=== PATIENT | male | born 1955 | race Caucasian/White ===

== ENCOUNTER 2017-06-03 06:45 | Observation (INO) | payer OTHER ==
--- NOTE | 2017-06-03 07:15 | C.PDOC ---
History Of Present Illness 61 y/o male presents to ED with complaints of dizziness "room spinning around me " with associated nausea and vomiting since this morning. Patient also reports intermittent chest pain for 2 weeks but denies current chest pain. She denies sob, cough, fever, focal extremity weakness, visual changes, sensory changes, facial droop, slurred speech. PMHx of HTN and hyperlipidemia. Time Seen by Provider: 06/03/17 07:09 Chief Complaint (Nursing): Dizziness/Lightheaded History Per: Patient History/Exam Limitations: no limitations Onset/Duration Of Symptoms: Hrs Current Symptoms Are (Timing): Still Present Past Medical History Reviewed: Historical Data, Nursing Documentation, Vital Signs Vital Signs: Last Vital Signs Temp 97.6 F 06/05/17 04:00 Pulse 98 H 06/05/17 04:00 Resp 20 06/05/17 04:00 BP 112/64 06/05/17 04:00 Pulse Ox 100 06/05/17 07:43 - Medical History PMH: HTN, Hypercholesterolemia Surgical History: No Surg Hx Family History: States: No Known Family Hx - Social History Hx Alcohol Use: No Hx Substance Use: No - Immunization History Hx Tetanus Toxoid Vaccination: No Hx Influenza Vaccination: No Hx Pneumococcal Vaccination: No Review Of Systems Except As Marked, All Systems Reviewed And Found Negative. Cardiovascular: Negative for: Chest Pain Respiratory: Negative for: Shortness of Breath Gastrointestinal: Positive for: Nausea, Vomiting. Negative for: Abdominal Pain Skin: Negative for: Rash Neurological: Positive for: Dizziness. Negative for: Weakness, Numbness, Altered Mental Status, Headache Physical Exam - Physical Exam Appears: Well, Non-toxic, No Acute Distress Skin: Warm, Dry, No Rash Head: Atraumatic, Normacephalic Eye(s): bilateral: Normal Inspection (No nystagmus) Oral Mucosa: Moist Neck: Supple Cardiovascular: Rhythm Regular Respiratory: Normal Breath Sounds, No Rales, No Rhonchi, No Wheezing Gastrointestinal/Abdominal: Normal Exam, Bowel Sounds, Soft, No Tenderness Extremity: Bilateral: Normal ROM Neurological/Psych: Oriented x3, Normal Speech, Normal Cognition, Normal Cranial Nerves, No Cerebellar Signs, Normal Motor, Normal Sensation, Normal Reflexes, No Dysarthria Gait: Steady ED Course And Treatment - Laboratory Results Result Diagrams: 06/05/17 06:22 06/05/17 06:22 ECG: Interpreted By Me, Viewed By Me (NSR 72 bpm, normal axis, no acute ST/T wave changes) ECG Rhythm: Sinus Rhythm ECG Interpretation: Normal Rate From EC (bpm) O2 Sat by Pulse Oximetry: 100 (RA) Pulse Ox Interpretation: Normal - CT Scan/US CT scan Head w/o Contrast Other Rad Studies (CT/US): Read By Radiologist, Radiology Report Reviewed CT/US Interpretation: IMPRESSION: No acute intracranial pathology. Progress Note: Blood work, EKG, CT scan head ordered and reviewed. Patient given PO Meclizine, PO ASA. Intermittent CP in patient with cardiac risk factors, will keep for chest pain workup. - Physician Consult Information Physician Contacted: Di Finch Outcome Of Conversation: Discussed patient with Dr. Finch, agrees with admission for intermittent chest pain, vertigo. Disposition - Disposition Disposition: HOSPITALIZED Disposition Time: 10:43 Condition: STABLE - Clinical Impression Clinical Impression: Dizziness, Vertigo, Intermittent chest pain Decision To Admit - Pt Status Changed To: Hospital Disposition Of: Observation - . Bed Request Type: Telemetry Admitting Physician: Di Finch Patient Diagnosis: Dizziness, Vertigo, Intermittent chest pain
--- NOTE | 2017-06-03 07:40 | RAD ---
Chest x-ray single frontal view History: Chest pain. Comparison: None available. Findings: Persistent confluent opacification at the left lung base with small left pleural effusion. Venous congestion. Right hilar prominence. Heart size within normal limits. Impression: Persistent confluent opacification at the left lung base with small left pleural effusion. Venous congestion. Right hilar prominence.
[2017-06-03 07:43] LABS: BASO % 0.4 % (0.0-2.0); EOS # 0.1 K/uL (0.0-0.7); EOS % 1.4 % (0.0-4.0); HEMOGLOBIN 9.8 g/dL (12.0-18.0); LYMPH # 0.9 K/uL (1.0-4.3); LYMPH % 10.5 % (20.0-40.0); MEAN CELL VOLUME 78.9 fL (80.0-94.0); MEAN CORPUSCULAR HEMOGLOBIN 27.4 pg (27.0-31.0); MEAN CORPUSCULAR HGB CONC 34.8 g/dL (33.0-37.0); MEAN PLATELET VOLUME 7.2 fL (7.2-11.7); MONO # 0.6 K/uL (0.0-0.8); NEUT # 6.8 K/uL (1.8-7.0); NEUT % 80.7 % (50.0-75.0); RBC 3.55 Mil/uL (4.40-5.90); RED CELL DISTRIBUTION WIDTH 14.8 % (11.5-14.5); WHITE BLOOD COUNT 8.4 K/uL (4.8-10.8)
[2017-06-03] MEDS ORDERED: Sodium Chloride 0.9% 1,000 ML IV ONE (07:59)
[2017-06-03 08:05] LABS: INR 1.2; PROTHROMBIN TIME 13.4 SECONDS (9.7-12.2)
[2017-06-03 08:08] LABS: CK-MB 2.93 ng/mL (0.0-3.38)
[2017-06-03] MEDS ORDERED: Sodium Chloride 0.9% 1,000 ML ONE (08:12)
[2017-06-03 08:33] LABS: ALB/GLOB RATIO 0.9 (1.0-2.1); ALBUMIN 3.3 g/dL (3.5-5.0); ALT/SGPT 22 U/L (21-72); AST/SGOT 49 U/L (17-59); BLOOD UREA NITROGEN 15 mg/dL (9-20); CALCIUM 9.1 mg/dl (8.6-10.4); GFR AFRICAN-AMERICAN > 60; GFR NON-AFRICAN AMERICAN > 60
--- NOTE | 2017-06-03 09:06 | CT ---
PROCEDURE: CT HEAD WITHOUT CONTRAST. HISTORY: dizziness COMPARISON: None available. TECHNIQUE: Axial computed tomography images were obtained through the head/brain without intravenous contrast. Radiation dose: Total exam DLP = 817.3 mGy-cm. This CT exam was performed using one or more of the following dose reduction techniques: Automated exposure control, adjustment of the mA and/or kV according to patient size, and/or use of iterative reconstruction technique. FINDINGS: HEMORRHAGE: No intracranial hemorrhage. BRAIN: No mass effect or edema. Mild atrophy. Mild chronic periventricular white matter microvascular ischemic changes. VENTRICLES: Unremarkable. No hydrocephalus. CALVARIUM: Unremarkable. PARANASAL SINUSES: Unremarkable as visualized. No significant inflammatory changes. MASTOID AIR CELLS: Unremarkable as visualized. No inflammatory changes. OTHER FINDINGS: None. IMPRESSION: No acute intracranial pathology.
[2017-06-03 09:17] LABS: URINE BILIRUBIN NEGATIVE (NEGATIVE); URINE BLOOD NEGATIVE (NEGATIVE); URINE CLARITY Clear (Clear); URINE COLOR Straw (YELLOW); URINE GLUCOSE (UA) 3+ mg/dL (Normal); URINE LEUKOCYTE ESTERASE NEG Leu/uL (Negative); URINE PROTEIN NEGATIVE (NEGATIVE); URINE UROBILINOGEN NORMAL mg/dL (0.2-1.0)
--- NOTE | 2017-06-03 19:01 | CP.PCM.HP ---
Past Patient History - Infectious Disease Hx of Infectious Diseases: None - Past Medical History & Family History Past Medical History?: Yes - Past Social History Smoking Status: Never Smoked - CARDIAC Hx Cardiac Disorders: Yes Hx Hypercholesterolemia: Yes Hx Hypertension: Yes - PULMONARY Hx Respiratory Disorders: No - NEUROLOGICAL Hx Neurological Disorder: No - HEENT Hx HEENT Problems: No - RENAL Hx Chronic Kidney Disease: No - ENDOCRINE/METABOLIC Hx Endocrine Disorders: Yes Hx Diabetes Mellitus Type 2: Yes - HEMATOLOGICAL/ONCOLOGICAL Hx Blood Disorders: No - INTEGUMENTARY Hx Dermatological Problems: No - MUSCULOSKELETAL/RHEUMATOLOGICAL Hx Musculoskeletal Disorders: No Hx Falls: No - GASTROINTESTINAL Hx Gastrointestinal Disorders: No - GENITOURINARY/GYNECOLOGICAL Hx Genitourinary Disorders: No - PSYCHIATRIC Hx Psychophysiologic Disorder: No Hx Substance Use: No - SURGICAL HISTORY Hx Surgeries: Yes Hx Cardiac Catheterization: Yes - ANESTHESIA Hx Anesthesia: Yes Hx Anesthesia Reactions: No Meds Allergies/Adverse Reactions: Allergies Allergy/AdvReac Type Severity Reaction Status Date / Time No Known Allergies Allergy Unverified 06/03/17 06:51 Physical Exam - Constitutional Appears: Well - Head Exam Head Exam: ATRAUMATIC, NORMAL INSPECTION, NORMOCEPHALIC - Eye Exam Eye Exam: EOMI, Normal appearance, PERRL Pupil Exam: NORMAL ACCOMODATION, PERRL - ENT Exam ENT Exam: Mucous Membranes Moist, Normal Exam - Neck Exam Neck exam: Positive for: Normal Inspection - Respiratory Exam Respiratory Exam: Decreased Breath Sounds - Cardiovascular Exam Cardiovascular Exam: REGULAR RHYTHM, +S1, +S2 - GI/Abdominal Exam GI & Abdominal Exam: Diminished Bowel Sounds, Soft - Rectal Exam Rectal Exam: Deferred Results - Vital Signs Recent Vital Signs: Last Vital Signs Temp 99.0 F 06/03/17 16:15 Pulse 81 06/03/17 18:00 Resp 20 06/03/17 16:15 BP 166/75 H 06/03/17 16:15 Pulse Ox 99 06/03/17 16:15 - Labs Result Diagrams: 06/03/17 07:37 06/03/17 07:37 Labs: Laboratory Results - last 24 hr 06/03/17 06/03/17 06/03/17 07:37 07:37 07:37 WBC 8.4 RBC 3.55 L Hgb 9.8 L Hct 28.0 L MCV 78.9 L MCH 27.4 MCHC 34.8 RDW 14.8 H Plt Count 410 H MPV 7.2 Neut % (Auto) 80.7 H Lymph % (Auto) 10.5 L Sebastian % (Auto) 7.0 Eos % (Auto) 1.4 Baso % (Auto) 0.4 Neut # (Auto) 6.8 Lymph # (Auto) 0.9 L Sebastian # (Auto) 0.6 Eos # (Auto) 0.1 Baso # (Auto) 0.0 PT 13.4 H INR 1.2 APTT 31 Sodium 141 Potassium 4.4 Chloride 105 Carbon Dioxide 22 Anion Gap 19 BUN 15 Creatinine 0.8 Est GFR ( Amer) > 60 Est GFR (Non-Af Amer) > 60 POC Glucose (mg/dL) Random Glucose 287 H Calcium 9.1 Total Bilirubin 0.6 AST 49 ALT 22 Alkaline Phosphatase 318 H Total Creatine Kinase 61 CK-MB (Mass) 2.93 Troponin I < 0.0120 Total Protein 7.2 Albumin 3.3 L Globulin 3.8 Albumin/Globulin Ratio 0.9 L Urine Color Urine Clarity Urine pH Ur Specific Frederick Urine Protein Urine Glucose (UA) Urine Ketones Urine Blood Urine Nitrate Urine Bilirubin Urine Urobilinogen Ur Leukocyte Esterase Urine WBC (Auto) Urine RBC (Auto) 06/03/17 06/03/17 09:11 17:34 WBC RBC Hgb Hct MCV MCH MCHC RDW Plt Count MPV Neut % (Auto) Lymph % (Auto) Sebastian % (Auto) Eos % (Auto) Baso % (Auto) Neut # (Auto) Lymph # (Auto) Sebastian # (Auto) Eos # (Auto) Baso # (Auto) PT INR APTT Sodium Potassium Chloride Carbon Dioxide Anion Gap BUN Creatinine Est GFR ( Amer) Est GFR (Non-Af Amer) POC Glucose (mg/dL) 202 H Random Glucose Calcium Total Bilirubin AST ALT Alkaline Phosphatase Total Creatine Kinase CK-MB (Mass) Troponin I Total Protein Albumin Globulin Albumin/Globulin Ratio Urine Color Straw Urine Clarity Clear Urine pH 6.0 Ur Specific Frederick 1.011 Urine Protein Negative Urine Glucose (UA) 3+ H Urine Ketones Negative Urine Blood Negative Urine Nitrate Negative Urine Bilirubin Negative Urine Urobilinogen Normal Ur Leukocyte Esterase Neg Urine WBC (Auto) < 1 Urine RBC (Auto) < 1
[2017-06-04] MEDS: Enoxaparin 40 mg Syringe SC SCH (09:23)
[2017-06-04] MEDS: Metoprolol Succinate 25 mg XL Tab PO SCH (09:23)
--- NOTE | 2017-06-04 09:51 | CP.PCM.CON ---
History of Present Illness - History of Present Illness History of Present Illness: Consult note for Dr. Castañeda CC: Dizziness HPI: Patient is a 61 year old male with a history of HTN, DM, and hyperlipidemia is here because he had an episode of dizziness and vomiting yesterday. He said yesterday morning he went to the bathroom and while walking to the bathroom he had a sensation like the room was spining and one episode of vomiting. He said he felt better when he went back to his room. He says he has been having generalized weakness of the past two months as well as 20lb weight loss in 2 months. He also reports some intermittent chest pain as well for the past 5-6 months as well. He says he was seen by his PMD last month and told his DM was under controlled. Review of Systems - Review of Systems All systems: reviewed and no additional remarkable complaints except - Constitutional Constitutional: Weight Loss. absent: Chills, Fever - EENT Eyes: absent: Blurred Vision, Change in Vision - Cardiovascular Cardiovascular: Chest Pain. absent: Dyspnea, Lightheadedness, Palpitations - Respiratory Respiratory: absent: Cough, Dyspnea - Gastrointestinal Gastrointestinal: Nausea, Vomiting. absent: Diarrhea - Genitourinary Genitourinary: absent: Difficulty Urinating, Dysuria - Musculoskeletal Musculoskeletal: absent: Back Pain, Numbness, Tingling - Neurological Neurological: Disequilibrium, Dizziness, Vertigo, Weakness. absent: Numbness, Frequent Falls, Sensory Deficit, Syncope, Other Visual Disturbances - Endocrine Endocrine: absent: Excessive Sweating, Fatigue, Palpitations Past Patient History - Infectious Disease Hx of Infectious Diseases: None - Past Medical History & Family History Past Medical History?: Yes - Past Social History Smoking Status: Never Smoked - CARDIAC Hx Cardiac Disorders: Yes Hx Hypercholesterolemia: Yes Hx Hypertension: Yes - PULMONARY Hx Respiratory Disorders: No - NEUROLOGICAL Hx Neurological Disorder: No - HEENT Hx HEENT Problems: No - RENAL Hx Chronic Kidney Disease: No - ENDOCRINE/METABOLIC Hx Endocrine Disorders: Yes Hx Diabetes Mellitus Type 2: Yes - HEMATOLOGICAL/ONCOLOGICAL Hx Blood Disorders: No - INTEGUMENTARY Hx Dermatological Problems: No - MUSCULOSKELETAL/RHEUMATOLOGICAL Hx Musculoskeletal Disorders: No Hx Falls: No - GASTROINTESTINAL Hx Gastrointestinal Disorders: No - GENITOURINARY/GYNECOLOGICAL Hx Genitourinary Disorders: No - PSYCHIATRIC Hx Psychophysiologic Disorder: No Hx Substance Use: No - SURGICAL HISTORY Hx Surgeries: Yes Hx Cardiac Catheterization: Yes - ANESTHESIA Hx Anesthesia: Yes Hx Anesthesia Reactions: No Meds Allergies/Adverse Reactions: Allergies Allergy/AdvReac Type Severity Reaction Status Date / Time No Known Allergies Allergy Unverified 06/03/17 06:51 - Medications Medications: Current Medications Aspirin (Ecotrin) 81 mg PO DAILY [facility] Last Admin: 06/04/17 09:22 Dose: 81 mg Clopidogrel Bisulfate (Plavix) 75 mg PO DAILY [facility] Last Admin: 06/04/17 09:22 Dose: 75 mg Enoxaparin Sodium (Lovenox) 40 mg SC DAILY [facility] Last Admin: 06/04/17 09:23 Dose: 40 mg Glipizide (Glucotrol) 5 mg PO DAILY [facility] Last Admin: 06/04/17 09:22 Dose: 5 mg Lisinopril (Zestril) 20 mg PO DAILY [facility] Last Admin: 06/04/17 09:22 Dose: 20 mg Metformin HCl (Glucophage Xr) 500 mg PO DAILY [facility] Last Admin: 06/04/17 09:23 Dose: 500 mg Metoprolol Succinate (Toprol Xl) 25 mg PO DAILY [facility] Last Admin: 06/04/17 09:23 Dose: 25 mg Nitroglycerin (Nitrostat Sl Tab) 0.4 mg SL Q5M PRN Pneumococcal Polyvalent Vaccine (Pneumovax 23 Vaccine) 0.5 ml IM .ONCE ONE Stop: 06/04/17 10:01 Rosuvastatin Calcium (Crestor) 40 mg PO [facility] Physical Exam - Constitutional Appears: Non-toxic, No Acute Distress - Eye Exam Eye Exam: Normal appearance, PERRL. absent: Scleral icterus Pupil Exam: NORMAL ACCOMODATION - Respiratory Exam Respiratory Exam: Clear to Auscultation Bilateral. absent: Rhonchi, Wheezes - Cardiovascular Exam Cardiovascular Exam: REGULAR RHYTHM - GI/Abdominal Exam GI & Abdominal Exam: Normal Bowel Sounds, Soft - Extremities Exam Extremities exam: Positive for: normal inspection - Neurological Exam Neurological exam: Alert, CN II-XII Intact, Oriented x3, Reflexes Normal - Psychiatric Exam Psychiatric exam: Normal Affect, Normal Mood Results - Vital Signs Recent Vital Signs: Last Vital Signs Temp 98 F 06/04/17 04:05 Pulse 72 06/04/17 04:05 Resp 20 06/04/17 04:05 BP 171/80 H 03/29/18 04:05 Pulse Ox 100 06/04/17 04:05 - Labs Result Diagrams: 06/03/17 07:37 06/03/17 07:37 Labs: Laboratory Results - last 24 hr 06/03/17 06/03/17 06/04/17 17:34 21:45 06:08 POC Glucose (mg/dL) 202 H 279 H 181 H Assessment & Plan (1) Vertigo Assessment and Plan: Case discussed and patient seen with Dr. Castañeda. Patient has normal neuro exam. Will get a CTA of the head and neck to look for vertebral basilar insufficiency. We also recommend a tilt able test and cardiac consultation as well. Status: Acute (2) Orthostatic hypotension Assessment and Plan: This could be secondary to autonomtic dysfunction due to controlled DM. Status: Acute (3) Diabetes mellitus Assessment and Plan: Uncontrolled with Hbg a1c 9.3, management per primary team. Status: Acute (4) HTN (hypertension) Assessment and Plan: Amlodapine added. management per primary. Status: Acute (5) Hyperlipidemia Status: Acute
[2017-06-04] MEDS ORDERED: Pneumococcal 23-Valent Vaccine IM ONE (10:00)
--- NOTE | 2017-06-04 10:49 | CP.PCM.PN ---
Subjective - Date & Time of Evaluation Date of Evaluation: 06/04/17 Time of Evaluation: 10:00 - Subjective Subjective: clinically same Objective - Vital Signs/Intake and Output Vital Signs (last 24 hours): Temp Pulse Resp BP Pulse Ox 98 F 72 20 171/80 H 100 06/04/17 04:05 06/04/17 04:05 06/04/17 04:05 06/04/17 04:05 06/04/17 04:05 - Medications Medications: Current Medications Aspirin (Ecotrin) 81 mg PO DAILY [facility] Last Admin: 06/04/17 09:22 Dose: 81 mg Clopidogrel Bisulfate (Plavix) 75 mg PO DAILY [facility] Last Admin: 06/04/17 09:22 Dose: 75 mg Enoxaparin Sodium (Lovenox) 40 mg SC DAILY [facility] Last Admin: 06/04/17 09:23 Dose: 40 mg Glipizide (Glucotrol) 5 mg PO DAILY [facility] Last Admin: 06/04/17 09:22 Dose: 5 mg Insulin Human Regular (Novolin R) 0 unit SC [facility] PRN Reason: Protocol Lisinopril (Zestril) 20 mg PO DAILY [facility] Last Admin: 06/04/17 09:22 Dose: 20 mg Metformin HCl (Glucophage Xr) 500 mg PO DAILY [facility] Last Admin: 06/04/17 09:23 Dose: 500 mg Metoprolol Succinate (Toprol Xl) 25 mg PO DAILY [facility] Last Admin: 06/04/17 09:23 Dose: 25 mg Nitroglycerin (Nitrostat Sl Tab) 0.4 mg SL Q5M PRN Rosuvastatin Calcium (Crestor) 40 mg PO [facility] - Labs Labs: 06/03/17 07:37 06/03/17 07:37 PT 13.4 SECONDS (9.7-12.2) H 06/03/17 07:37 INR 1.2 06/03/17 07:37 APTT 31 SECONDS (21-34) 06/03/17 07:37 - Constitutional Appears: Well - Head Exam Head Exam: ATRAUMATIC, NORMAL INSPECTION, NORMOCEPHALIC - Eye Exam Eye Exam: EOMI, Normal appearance, PERRL Pupil Exam: NORMAL ACCOMODATION, PERRL - ENT Exam ENT Exam: Mucous Membranes Moist, Normal Exam - Neck Exam Neck Exam: Full ROM, Normal Inspection. absent: Lymphadenopathy - Respiratory Exam Respiratory Exam: Decreased Breath Sounds - Cardiovascular Exam Cardiovascular Exam: REGULAR RHYTHM, +S1, +S2 - GI/Abdominal Exam GI & Abdominal Exam: Soft, Diminished Bowel Sounds - Rectal Exam Rectal Exam: Deferred
--- NOTE | 2017-06-04 11:15 | CP.PCM.PN ---
Subjective - Date & Time of Evaluation Date of Evaluation: 06/04/17 Time of Evaluation: 09:10 - Subjective Subjective: PGY-[address] Finch Patient seen and examined at bedside. No acute events overnight. Patient state his dizziness and chest pain have resolved. He further denies fever, chills, shortness of breath, nausea or vomiting. Objective - Vital Signs/Intake and Output Vital Signs (last 24 hours): Temp Pulse Resp BP Pulse Ox 98 F 72 20 171/80 H 100 06/04/17 04:05 06/04/17 04:05 06/04/17 04:05 06/04/17 04:05 06/04/17 04:05 - Medications Medications: Current Medications Amlodipine Besylate (Norvasc) 5 mg PO DAILY [facility] Aspirin (Ecotrin) 81 mg PO DAILY [facility] Last Admin: 06/04/17 09:22 Dose: 81 mg Clopidogrel Bisulfate (Plavix) 75 mg PO DAILY [facility] Last Admin: 06/04/17 09:22 Dose: 75 mg Enoxaparin Sodium (Lovenox) 40 mg SC DAILY [facility] Last Admin: 06/04/17 09:23 Dose: 40 mg Glipizide (Glucotrol) 5 mg PO DAILY [facility] Last Admin: 06/04/17 09:22 Dose: 5 mg Insulin Human Regular (Novolin R) 0 unit SC [facility] PRN Reason: Protocol Lisinopril (Zestril) 20 mg PO DAILY [facility] Last Admin: 06/04/17 09:22 Dose: 20 mg Metformin HCl (Glucophage Xr) 500 mg PO DAILY [facility] Last Admin: 06/04/17 09:23 Dose: 500 mg Metoprolol Succinate (Toprol Xl) 25 mg PO DAILY [facility] Last Admin: 06/04/17 09:23 Dose: 25 mg Nitroglycerin (Nitrostat Sl Tab) 0.4 mg SL Q5M PRN Rosuvastatin Calcium (Crestor) 40 mg PO [facility] - Labs Labs: 06/03/17 07:37 06/03/17 07:37 PT 13.4 SECONDS (9.7-12.2) H 06/03/17 07:37 INR 1.2 06/03/17 07:37 APTT 31 SECONDS (21-34) 06/03/17 07:37 - Constitutional Appears: Non-toxic, No Acute Distress - Head Exam Head Exam: ATRAUMATIC, NORMOCEPHALIC - Eye Exam Eye Exam: Normal appearance - ENT Exam ENT Exam: Mucous Membranes Moist - Neck Exam Neck Exam: Normal Inspection - Respiratory Exam Respiratory Exam: Clear to Ausculation Bilateral, NORMAL BREATHING PATTERN. absent: Respiratory Distress - Cardiovascular Exam Cardiovascular Exam: REGULAR RHYTHM, +S1, +S2. absent: Murmur - GI/Abdominal Exam GI & Abdominal Exam: Soft, Normal Bowel Sounds. absent: Tenderness - Neurological Exam Neurological Exam: Alert, Awake, Oriented x3 - Psychiatric Exam Psychiatric exam: Normal Affect, Normal Mood - Skin Skin Exam: Dry, Warm Assessment and Plan - Assessment and Plan (Free Text) Assessment: Dizziness -Resolving -Orthostatic blood pressure -Neurology consult, Dr. Castañeda help appreciated -Meclinzine 25mg Q6 Chest pain -EKG NSR no acute ST changes -Troponin negative x2, repeats pending -Nitroglycerin 0.4mg Q5m prn -ASA 325mg Hypertension -Lisinopril 20mg -Metoprolol 25mg bid -Amlodipine 5mg DM -Metformin 500mg -ISS -FS ACHS -Follow up A1C Hyperlipidemia -Crestor 40mg Prophylactic measure -Lovenox -Pepcid -PT
[2017-06-04 11:30] VITALS: RESP 20
[2017-06-04] MEDS: (Novolin R) Insulin Human Regular 100 units/ml vial SC SCH ×3 (12:01→21:14)
--- NOTE | 2017-06-04 14:47 | CARD ---
APPROVED REPORT EKG Measurement Heart [id number] MD [id number] <Conclusion> Normal sinus rhythm Normal ECG
[2017-06-04] MEDS ORDERED: Iodixanol 320 MG/ML 100 ML BOTTLE IV ONE (18:15)
--- NOTE | 2017-06-04 21:08 | CT ---
EXAM: CT Angiography Head With Intravenous Contrast CT Angiography Neck With Intravenous Contrast EXAM DATE/TIME: 06/04/2017 5:18 PM CLINICAL HISTORY: 61 years old, male; Signs and symptoms; Vertigo; Additional info: Vertigo, TECHNIQUE: Axial computed tomographic angiography images of the head and neck with intravenous contrast using CT angiography protocol. All CT scans at this facility use one or more dose reduction techniques, viz.: automated exposure control; ma/kV adjustment per patient size (including targeted exams where dose is matched to indication; i.e. head); or iterative reconstruction technique. All CT scans at this facility use one or more dose reduction techniques, viz.: automated exposure control; ma/kV adjustment per patient size (including targeted exams where dose is matched to indication; i.e. head); or iterative reconstruction technique. MIP reconstructed images were created and reviewed. Coronal and sagittal reformatted images were created and reviewed. CONTRAST: 100 mL of VISIPAQUE 320 administered intravenously. COMPARISON: Recent head CT. FINDINGS: HEAD: RIGHT ANTERIOR CEREBRAL ARTERY: Fenestration of the right A1 segment, a congenital variant. No evidence of occlusion. No aneurysm visualized. RIGHT MIDDLE CEREBRAL ARTERY: No evidence of occlusion. No aneurysm visualized. RIGHT POSTERIOR CEREBRAL ARTERY: No evidence of occlusion. No aneurysm visualized. 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 There is normal enhancement of the left anterior cerebral arteries distal to this, with no evidence of occlusion. The left anterior cerebral artery appears to be supplied by a large anterior communicating artery arising from the contralateral right A1 segment. No aneurysm visualized. LEFT MIDDLE CEREBRAL ARTERY: No evidence of occlusion. No aneurysm visualized. LEFT POSTERIOR CEREBRAL ARTERY: No evidence of occlusion. No aneurysm visualized. BASILAR ARTERY: No evidence of occlusion or significant stenosis. No aneurysm visualized. NECK: RIGHT COMMON CAROTID ARTERY: No evidence of occlusion or significant stenosis. No evidence of dissection. RIGHT INTERNAL CAROTID ARTERY: No significant plaque identified. No evidence of occlusion. No aneurysm visualized. RIGHT EXTERNAL CAROTID ARTERY: No evidence of occlusion. RIGHT VERTEBRAL ARTERY: No evidence of occlusion or significant stenosis. No evidence of dissection. LEFT COMMON CAROTID ARTERY: No evidence of occlusion or significant stenosis. No evidence of dissection. LEFT INTERNAL CAROTID ARTERY: Small amount of calcified plaque in the left proximal internal carotid artery, causing a mild approximately 15% stenosis. Calcified plaque in the supraclinoid portion of the left internal carotid artery. No evidence of occlusion. LEFT EXTERNAL CAROTID ARTERY: No evidence of occlusion. LEFT VERTEBRAL ARTERY: No evidence of occlusion or significant stenosis. No evidence of dissection. PLEURAL SPACE: Left pleural effusion incidentally noted. No pneumothorax seen HEAD and NECK: BONES/JOINTS: No acute bony abnormality identified. SOFT TISSUES: No acute abnormality of the visualized soft tissues seen. CAROTID STENOSIS REFERENCE USING NASCET CRITERIA: % ICA stenosis = (1 - narrowest ICA diameter/diameter of distal cervical ICA) x 100. Mild - <50% stenosis. Moderate - 50-69% stenosis. Severe - 70-94% stenosis. Near occlusion - 95-99% stenosis. Occluded - 100% stenosis. IMPRESSION: - No evidence of occlusion or other acute abnormality of the major intracranial or neck arteries. - Findings compatible with a mild 15% stenosis of the left internal carotid artery. - Left pleural effusion incidentally noted. - See above for remaining findings.
[2017-06-05 06:32] LABS: BASO % 0.4 % (0.0-2.0); EOS # 0.3 K/uL (0.0-0.7); EOS % 2.6 % (0.0-4.0); HEMOGLOBIN 10.6 g/dL (12.0-18.0); LYMPH % 20.8 % (20.0-40.0); MEAN CELL VOLUME 79.2 fL (80.0-94.0); MEAN CORPUSCULAR HEMOGLOBIN 26.8 pg (27.0-31.0); MEAN CORPUSCULAR HGB CONC 33.8 g/dL (33.0-37.0); MONO # 0.7 K/uL (0.0-0.8); MONO % 7.6 % (0.0-10.0); NEUT # 6.6 K/uL (1.8-7.0); NEUT % 68.6 % (50.0-75.0); RBC 3.94 Mil/uL (4.40-5.90); RED CELL DISTRIBUTION WIDTH 14.8 % (11.5-14.5); WHITE BLOOD COUNT 9.6 K/uL (4.8-10.8)
[2017-06-05 07:07] LABS: ALB/GLOB RATIO 0.8 (1.0-2.1); ALBUMIN 3.4 g/dL (3.5-5.0); ALT/SGPT 26 U/L (21-72); AST/SGOT 20 U/L (17-59); BLOOD UREA NITROGEN 13 mg/dL (9-20); CALCIUM 9.2 mg/dl (8.6-10.4); GFR AFRICAN-AMERICAN > 60; GFR NON-AFRICAN AMERICAN > 60
[2017-06-05] MEDS: (Novolin R) Insulin Human Regular 100 units/ml vial SC SCH ×2 (08:00→12:28)
[2017-06-05 08:35] VITALS: BP 142/72; PULSE 82; TEMP 97; O2SAT 96
[2017-06-05] MEDS: Enoxaparin 40 mg Syringe SC SCH (09:15)
[2017-06-05] MEDS: Metoprolol Succinate 25 mg XL Tab PO SCH (09:15)
--- NOTE | 2017-06-05 09:42 | CP.PCM.PN ---
Subjective - Date & Time of Evaluation Date of Evaluation: 06/05/17 Time of Evaluation: 09:39 - Subjective Subjective: Progress Note for Dr. Finch's Service Patient seen and examined at bedside. He states that he is feeling well and denies any acute complaints. No acute events overnight as per nursing. Objective - Vital Signs/Intake and Output Vital Signs (last 24 hours): Temp Pulse Resp BP Pulse Ox 97.0 F L 82 20 142/72 96 06/05/17 08:34 06/05/17 08:34 06/05/17 08:34 06/05/17 08:34 06/05/17 08:34 - Medications Medications: Current Medications Amlodipine Besylate (Norvasc) 5 mg PO DAILY [facility] Last Admin: 06/05/17 09:15 Dose: 5 mg Aspirin (Ecotrin) 81 mg PO DAILY [facility] Last Admin: 06/05/17 09:15 Dose: 81 mg Clopidogrel Bisulfate (Plavix) 75 mg PO DAILY [facility] Last Admin: 06/05/17 09:15 Dose: 75 mg Enoxaparin Sodium (Lovenox) 40 mg SC DAILY [facility] Last Admin: 06/05/17 09:15 Dose: 40 mg Famotidine (Pepcid) 20 mg PO DAILY [facility] Glipizide (Glucotrol) 5 mg PO DAILY [facility] Last Admin: 06/05/17 09:15 Dose: 5 mg Insulin Human Regular (Novolin R) 0 unit SC [facility] PRN Reason: Protocol Last Admin: 06/05/17 08:00 Dose: Not Given Lisinopril (Zestril) 20 mg PO DAILY [facility] Last Admin: 06/05/17 09:15 Dose: 20 mg Meclizine HCl (Antivert) 25 mg PO Q6H PRN PRN Reason: Dizziness Last Admin: 06/04/17 17:45 Dose: 25 mg Metformin HCl (Glucophage Xr) 500 mg PO DAILY [facility] Last Admin: 06/04/17 09:23 Dose: 500 mg Metoprolol Succinate (Toprol Xl) 25 mg PO DAILY [facility] Last Admin: 06/05/17 09:15 Dose: 25 mg Nitroglycerin (Nitrostat Sl Tab) 0.4 mg SL Q5M PRN Rosuvastatin Calcium (Crestor) 40 mg PO HS [facility] Last Admin: 06/04/17 21:29 Dose: 40 mg - Labs Labs: 06/05/17 06:22 06/05/17 06:22 PT 13.4 SECONDS (9.7-12.2) H 06/03/17 07:37 INR 1.2 06/03/17 07:37 APTT 31 SECONDS (21-34) 06/03/17 07:37 - Constitutional Appears: No Acute Distress - Head Exam Head Exam: ATRAUMATIC, NORMOCEPHALIC - Eye Exam Eye Exam: EOMI, Normal appearance - ENT Exam ENT Exam: Mucous Membranes Moist - Respiratory Exam Respiratory Exam: Clear to Ausculation Bilateral, NORMAL BREATHING PATTERN - Cardiovascular Exam Cardiovascular Exam: REGULAR RHYTHM, +S1, +S2 - GI/Abdominal Exam GI & Abdominal Exam: Soft. absent: Distended, Tenderness - Neurological Exam Neurological Exam: Alert, Awake, Oriented x3 - Psychiatric Exam Psychiatric exam: Normal Affect, Normal Mood - Skin Skin Exam: Dry, Warm Assessment and Plan - Assessment and Plan (Free Text) Plan: Dizziness -Resolving -Orthostatics- NML -Neurology consult, Dr. Castañeda help appreciated Will get a CTA of the head and neck to look for vertebral basilar insufficiency. We also recommend a tilt able test and cardiac consultation as well. -Meclinzine 25mg Q6h prn -CT head negative -CTA head/neck- no occlusion/acute pathology Chest pain -EKG NSR no acute ST changes - CXR left lung base opacification, right hilar prominence, venous congestion -Troponin negative x3 -Nitroglycerin 0.4mg Q5m prn -ASA 325mg Hypertension -Lisinopril 20mg daily -Metoprolol succ 25mg daily -Amlodipine 5mg daily DM- uncontrolled -FS ACHS -A1C 9.3 -Metformin 500mg -Glipizide 5mg PO daily -ISS -ASA 81mg daily Hyperlipidemia -Crestor 40mg daily Prophylactic measure -Lovenox 40mg sc daily -Pepcid 20mg daily -PT Case discussed with Dr. Finch All management as per Dr. Finch
[2017-06-05] MEDS ORDERED: Influenza Vaccine 60 mcg/0.5 mL SYR (4YR UP) IM ONE (12:00)
== END 2017-06-05 15:23 | disposition home or self-care (01) ==
LOC: SUPCPDRO 06:45 → EDBD 06:45 → C.ER 06:45 → C.9E 10:43 → C.6T 14:56
PROVIDERS: ADMIT Internal Medicine Nephrology; ATTEND Internal Medicine Nephrology
DX: R42 Dizziness and giddiness (principal); R07.89 Other chest pain; E11.9 Type 2 diabetes mellitus without complications; E78.00 Pure hypercholesterolemia, unspecified; E78.5 Hyperlipidemia, unspecified; I10 Essential (primary) hypertension; Z79.84 Long term (current) use of oral hypoglycemic drugs
CPT/HCPCS: 36415; 70450; 70496; 70498; 71045; 80053; 81001; 82550; 82553; 82948; 83036; 84484; 85025; 85610; 85730; 93005; 96360; 97110; 97116; 97162; 99285; G0378; G8978; G8979; J1650; J7040; Q9967

== ENCOUNTER 2017-06-24 10:41 | Observation (INO) | payer MEDICAID, OTHER, SELFPAY ==
--- NOTE | 2017-06-24 11:42 | C.PDOC ---
History Of Present Illness 61-YEAR-OLD MALE, PRESENTS TO THE EMERGENCY DEPARTMENT REFERRED BY PMD FOR INCREASE CP SINCE YEST. MORE INTENSE THAN BEFORE. RECENT DC 05/2017 S/P VERTIGO. PS HAD CP THEN BUT CURRENT EPISODE MORE INTENSE. NO SOB, DIZZY. HO CARDIAC STENTS. S/P [employer] Time Seen by Provider: 06/24/17 11:09 Chief Complaint (Nursing): Chest Pain History Per: Patient History/Exam Limitations: no limitations Past Medical History Reviewed: Historical Data, Nursing Documentation, Vital Signs Vital Signs: Last Vital Signs Temp 97.9 F 06/24/17 15:15 Pulse 78 06/24/17 15:15 Resp 20 06/24/17 15:15 BP 166/68 H 06/24/17 15:15 Pulse Ox 100 06/24/17 15:15 - Medical History PMH: HTN, Hypercholesterolemia Denies: Chronic Kidney Disease Family History: States: No Known Family Hx - Social History Hx Alcohol Use: No Hx Substance Use: No - Immunization History Hx Tetanus Toxoid Vaccination: No Hx Influenza Vaccination: No Hx Pneumococcal Vaccination: No Review Of Systems Constitutional: Negative for: Fever, Chills Cardiovascular: Positive for: Chest Pain Respiratory: Negative for: Shortness of Breath Gastrointestinal: Negative for: Nausea, Vomiting Skin: Negative for: Rash Neurological: Negative for: Weakness, Numbness, Headache, Dizziness Physical Exam - Physical Exam Appears: Non-toxic, No Acute Distress Skin: Normal Color, Warm, No Rash Head: Normacephalic Eye(s): bilateral: PERRL Nose: Normal Oral Mucosa: Moist Lips: Normal Appearing Neck: Normal ROM Chest: Symmetrical Cardiovascular: Rhythm Regular, No Murmur Respiratory: Normal Breath Sounds, No Accessory Muscle Use Extremity: Normal ROM, No Deformity, No Swelling Neurological/Psych: Oriented x3, Normal Speech ED Course And Treatment - Laboratory Results Result Diagrams: 06/24/17 11:49 06/24/17 11:49 ECG: Interpreted By Me ECG Rhythm: Sinus Rhythm ECG Interpretation: Normal Rate From EC O2 Sat by Pulse Oximetry: 97 (RA) Pulse Ox Interpretation: Normal Progress - Re-Evaluation Re-evaluation Note: 06/24/17 11:42 D/W DR Estelita LOBATO: STATES TO ADMIT PT TO HOSPITALIST DUE TO INSURANCE STATUS 06/24/17 13:19 D/W DR Ramiro LOBATO HOSP WILL ADMIT - Data Reviewed Data Reviewed: Lab, Diagnostic imaging, EKG, Old records - Continuity of Care Discussed patient case with:: Patient, Family-HIPPA compliant, On-call PMD-pt unassigned Disposition Counseled Patient/Family Regarding: Studies Performed, Diagnosis - Disposition Disposition: HOSPITALIZED Disposition Time: 13:20 Condition: STABLE - POA Present On Arrival: None - Clinical Impression Clinical Impression: Chest pain - Scribe Statement The provider has reviewed the documentation as recorded by the Scribe (Bea Barajas) All medical record entries made by the Scribe were at my direction and personally dictated by me. I have reviewed the chart and agree that the record accurately reflects my personal performance of the history, physical exam, medical decision making, and the department course for this patient. I have also personally directed, reviewed, and agree with the discharge instructions and disposition. Decision To Admit - Pt Status Changed To: Hospital Disposition Of: Observation - . Bed Request Type: Telemetry Admitting Physician: Boris Lobato Patient Diagnosis: Chest pain
[2017-06-24 12:04] LABS: BASO % 0.2 % (0.0-2.0); EOS % 0.5 % (0.0-4.0); HEMOGLOBIN 9.1 g/dL (12.0-18.0); LYMPH # 1.6 K/uL (1.0-4.3); LYMPH % 17.8 % (20.0-40.0); MEAN CELL VOLUME 78.1 fL (80.0-94.0); MEAN CORPUSCULAR HEMOGLOBIN 26.7 pg (27.0-31.0); MEAN CORPUSCULAR HGB CONC 34.2 g/dL (33.0-37.0); MEAN PLATELET VOLUME 7.6 fL (7.2-11.7); MONO # 0.7 K/uL (0.0-0.8); MONO % 8.2 % (0.0-10.0); NEUT # 6.4 K/uL (1.8-7.0); NEUT % 73.3 % (50.0-75.0); NRBC % 0.1 % (0.0-2.0); RBC 3.42 Mil/uL (4.40-5.90); RED CELL DISTRIBUTION WIDTH 15.9 % (11.5-14.5); WHITE BLOOD COUNT 8.7 K/uL (4.8-10.8)
--- NOTE | 2017-06-24 12:05 | RAD ---
PROCEDURE: CHEST RADIOGRAPH, 1 VIEW HISTORY: chest pain COMPARISON: Chest radiograph dated 06/03/2017. FINDINGS: LUNGS: Persistent opacity at the left base laterally. PLEURA: No pneumothorax or pleural fluid seen. CARDIOVASCULAR: Normal. OSSEOUS STRUCTURES: Unchanged. VISUALIZED UPPER ABDOMEN: Normal. OTHER FINDINGS: None. IMPRESSION: Persistent opacity of the left base laterally. Follow-up to resolution.
[2017-06-24 12:36] LABS: ALB/GLOB RATIO 0.9 (1.0-2.1); ALBUMIN 3.5 g/dL (3.5-5.0); ALT/SGPT 24 U/L (21-72); AST/SGOT 32 U/L (17-59); BLOOD UREA NITROGEN 23 mg/dL (9-20); CALCIUM 9.3 mg/dl (8.6-10.4); GFR AFRICAN-AMERICAN > 60; GFR NON-AFRICAN AMERICAN > 60
[2017-06-24] MEDS ORDERED: Pneumococcal 23-Valent Vaccine IM ONE (15:06)
[2017-06-24] MEDS ORDERED: Glucagon Recombinant 1 mg Inj IM PRN (15:50)
[2017-06-24] MEDS ORDERED: Dextrose 50% SYRINGE Inj (50 ml) IV PRN (15:50)
[2017-06-24] MEDS ORDERED: (Novolin R) Insulin Human Regular 100 units/ml vial SC SCH (16:30)
--- NOTE | 2017-06-24 16:56 | CP.PCM.HP ---
<Flora Andino - Last Filed: 06/24/17 16:56> History of Present Illness - History of Present Illness History of Present Illness: HPI: Patient is a 61 year old male with a past medical history of HTN, HLD, DM II, and CAD s/p 2 stents (at [facility] in May & June 2016) presents to the ED complaining of chest pain. Patient says he has had this pain for a year ever since the stent was placed, however it comes and goes. Patient says it feels like a searing pain and points just to the left of the apex of his heart when describing where the pain is. He rates it as a 4/10 and says it lasts anywhere between 2-5 minutes. Patient says he woke up this morning and showered around 5 AM and felt it while he was showering but it went away so he went back to sleep afterwards. When he woke up later he had the pain again around 9-10 AM, but this time he felt weak when he had it. He says nothing made the pain better or worse until he got to the ED where he got nitro and the pain went away. Patient denies fever, chills, lightheadedness, dizziness, SOB, parasthesias, cough, abdominal pain, n/v/d/c, calf pain, and lower extremity swelling. PMD: Estelita Finch Cardio: Binh PMH: HTN, HLD, DM II, and CAD s/p 2 stents (at [facility] in May & June 2016) Meds: * Lisinopril 20 mg daily * Metoprolol Succinate 25 mg QD * Amlodipine 5 mg QD * Metformin 500 mg BID * Glipizide 5 mg QD * ASA 81 mg daily * Plavix 75 mg daily * Atorvastatin 80 mg daily Allergies: denies Family history: Mother with HTN, Father of traumatic brain bleed, brother with DM Social: chewing tobacco daily since 17 years old, denies alcohol and drug use Present on Admission - Present on Admission Any Indicators Present on Admission: No Review of Systems - Review of Systems All systems: reviewed and no additional remarkable complaints except (as per HPI ) Past Patient History - Infectious Disease Hx of Infectious Diseases: None - Past Medical History & Family History Past Medical History?: Yes - Past Social History Smoking Status: Never Smoked - CARDIAC Hx Hypercholesterolemia: Yes Hx Hypertension: Yes - PULMONARY Hx Respiratory Disorders: No - NEUROLOGICAL Hx Neurological Disorder: No - HEENT Hx HEENT Problems: No - RENAL Hx Chronic Kidney Disease: No - ENDOCRINE/METABOLIC Hx Endocrine Disorders: Yes Hx Diabetes Mellitus Type 2: Yes - HEMATOLOGICAL/ONCOLOGICAL Hx Blood Disorders: No - INTEGUMENTARY Hx Dermatological Problems: No - MUSCULOSKELETAL/RHEUMATOLOGICAL Hx Musculoskeletal Disorders: No Hx Falls: No - GASTROINTESTINAL Hx Gastrointestinal Disorders: No - GENITOURINARY/GYNECOLOGICAL Hx Genitourinary Disorders: No - PSYCHIATRIC Hx Substance Use: No - SURGICAL HISTORY Hx Surgeries: Yes Hx Cardiac Catheterization: Yes - ANESTHESIA Hx Anesthesia: Yes Hx Anesthesia Reactions: No Meds Allergies/Adverse Reactions: Allergies Allergy/AdvReac Type Severity Reaction Status Date / Time No Known Allergies Allergy Verified 06/24/17 10:48 Physical Exam - Constitutional Appears: Non-toxic, No Acute Distress - Head Exam Head Exam: ATRAUMATIC, NORMAL INSPECTION, NORMOCEPHALIC - Eye Exam Eye Exam: EOMI, Normal appearance, PERRL - ENT Exam ENT Exam: Mucous Membranes Moist Additional comments: poor dental hygiene - Respiratory Exam Respiratory Exam: Clear to Auscultation Bilateral, NORMAL BREATHING PATTERN - Cardiovascular Exam Cardiovascular Exam: RRR, +S1, +S2. absent: Systolic Murmur - GI/Abdominal Exam GI & Abdominal Exam: Normal Bowel Sounds, Soft. absent: Tenderness - Extremities Exam Extremities exam: Positive for: normal inspection. Negative for: calf tenderness, pedal edema - Back Exam Back exam: NORMAL INSPECTION - Neurological Exam Neurological exam: Alert, Oriented x3 - Psychiatric Exam Psychiatric exam: Normal Affect, Normal Mood - Skin Skin Exam: Dry, Intact, Normal Color, Warm Results - Vital Signs Recent Vital Signs: Last Vital Signs Temp 97.9 F 06/24/17 15:15 Pulse 78 06/24/17 15:15 Resp 20 06/24/17 15:15 BP 166/68 H 06/24/17 15:15 Pulse Ox 100 06/24/17 15:15 - Labs Result Diagrams: 06/24/17 11:49 06/24/17 11:49 Labs: Laboratory Results - last 24 hr 06/24/17 06/24/17 11:49 11:49 WBC 8.7 RBC 3.42 L Hgb 9.1 L Hct 26.7 L MCV 78.1 L MCH 26.7 L MCHC 34.2 RDW 15.9 H Plt Count 451 H MPV 7.6 Neut % (Auto) 73.3 Lymph % (Auto) 17.8 L [place] % (Auto) 8.2 Eos % (Auto) 0.5 Baso % (Auto) 0.2 Neut # (Auto) 6.4 Lymph # (Auto) 1.6 [place] # (Auto) 0.7 Eos # (Auto) 0.0 Baso # (Auto) 0.0 Sodium 137 Potassium 4.5 Chloride 100 Carbon Dioxide 23 Anion Gap 19 BUN 23 H Creatinine 1.0 Est GFR ( Amer) > 60 Est GFR (Non-Af Amer) > 60 Random Glucose 384 H Calcium 9.3 Total Bilirubin 0.9 AST 32 ALT 24 Alkaline Phosphatase 365 H D Troponin I < 0.0120 Total Protein 7.5 Albumin 3.5 Globulin 4.0 H Albumin/Globulin Ratio 0.9 L Assessment & Plan - Assessment and Plan (Free Text) Plan: Atypical chest pain with history of CAD s/p stenting x2 (at [facility] - May and June of [address] Purcell) * Observe on telemetry * Cardiology (Dr. Gómez) consulted, help appreciated * Lexiscan in AM * Troponin and EKG at 6 pm and 12 am * f/u echo * f/u TSH and T4 * f/u lipid panel * f/u HbA1c Meds: * ASA 81 mg daily * Toprol 25 mg HS * Lisinopril 20 mg daily * Crestor 40 mg HS Anemia * likely secondary to iron deficiency * f/u Iron * f/u ferritin * f/u % Saturation * f/u TIBC History of DM II * Hold metformin and glipizide * RISS low dose * Accuchecks * Hypoglycemic protocol * f/u HbA1c * f/u lipid panel History of HLD * f/u lipid panel * Crestor as above History of HTN * Toprol 25 mg HS * Lisinopril 20 mg daily * Amlodipine 5 mg daily at 1 pm Prophylaxis * GI prophylaxis not indicated * DVT risk score: 2 - Heparin and SCDs <Boris Finch - Last Filed: 06/24/17 19:51> Results - Vital Signs Recent Vital Signs: Last Vital Signs Temp 97.9 F 06/24/17 15:15 Pulse 78 06/24/17 15:15 Resp 20 06/24/17 15:15 BP 166/68 H 06/24/17 15:15 Pulse Ox 97 06/24/17 17:18 - Labs Result Diagrams: 06/24/17 11:49 06/24/17 11:49 Labs: Laboratory Results - last 24 hr 06/24/17 06/24/17 06/24/17 11:49 11:49 16:36 WBC 8.7 RBC 3.42 L Hgb 9.1 L Hct 26.7 L MCV 78.1 L MCH 26.7 L MCHC 34.2 RDW 15.9 H Plt Count 451 H MPV 7.6 Neut % (Auto) 73.3 Lymph % (Auto) 17.8 L [place] % (Auto) 8.2 Eos % (Auto) 0.5 Baso % (Auto) 0.2 Neut # (Auto) 6.4 Lymph # (Auto) 1.6 [place] # (Auto) 0.7 Eos # (Auto) 0.0 Baso # (Auto) 0.0 Sodium 137 Potassium 4.5 Chloride 100 Carbon Dioxide 23 Anion Gap 19 BUN 23 H Creatinine 1.0 Est GFR ( Amer) > 60 Est GFR (Non-Af Amer) > 60 POC Glucose (mg/dL) 446 H* Random Glucose 384 H Calcium 9.3 Total Bilirubin 0.9 AST 32 ALT 24 Alkaline Phosphatase 365 H D Total Creatine Kinase CK-MB (Mass) Troponin I < 0.0120 Total Protein 7.5 Albumin 3.5 Globulin 4.0 H Albumin/Globulin Ratio 0.9 L 06/24/17 06/24/17 16:38 18:49 WBC RBC Hgb Hct MCV MCH MCHC RDW Plt Count MPV Neut % (Auto) Lymph % (Auto) [place] % (Auto) Eos % (Auto) Baso % (Auto) Neut # (Auto) Lymph # (Auto) [place] # (Auto) Eos # (Auto) Baso # (Auto) Sodium Potassium Chloride Carbon Dioxide Anion Gap BUN Creatinine Est GFR ( Amer) Est GFR (Non-Af Amer) POC Glucose (mg/dL) 450 H* Random Glucose Calcium Total Bilirubin AST ALT Alkaline Phosphatase Total Creatine Kinase 74 CK-MB (Mass) 1.87 Troponin I < 0.0120 Total Protein Albumin Globulin Albumin/Globulin Ratio Attending/Attestation - Attestation I have personally seen and examined this patient.: Yes I have fully participated in the care of the patient.: Yes I have reviewed all pertinent clinical information: Yes Notes (Text): 06/24/17 19:50 Patient was seen and examined with Resident Dr. Andino. History, Physical, Assessment and Plan were thoroughly gone over with the resident. Boris Finch D.O.
[2017-06-24 19:16] LABS: CK-MB 1.87 ng/mL (0.0-3.38)
[2017-06-24] MEDS: Metoprolol Succinate 25 mg XL Tab PO SCH (21:29)
[2017-06-24] MEDS: (Novolin R) Insulin Human Regular 100 units/ml vial SC SCH (21:34)
[2017-06-25 00:52] LABS: CK-MB 1.24 ng/mL (0.0-3.38); TROPONIN I 0.014 ng/mL (0.00-0.120)
[2017-06-25 04:48] VITALS: O2SAT 99
--- NOTE | 2017-06-25 06:18 | CP.PCM.CON ---
History of Present Illness - History of Present Illness History of Present Illness: CC chest pain HPI Patient is a 61 year old male with a past medical history of HTN, HLD, DM II , and CAD s/p 2 stents (at [facility] in May & June 2016) presents to the ED complaining of chest pain. Patient says he has had this pain for a year ever since the stent was placed, however it comes and goes. Patient says it feels like a searing pain and points just to the left of the apex of his heart when describing where the pain is. He rates it as a 4/10 and says it lasts anywhere between 2-5 minutes. Patient says he woke up this morning and showered around 5 AM and felt it while he was showering but it went away so he went back to sleep afterwards. When he woke up later he had the pain again around 9-10 AM, but this time he felt weak when he had it. He says nothing made the pain better or worse until he got to the ED where he got nitro and the pain went away. Patient denies fever, chills, lightheadedness, dizziness, SOB, parasthesias, cough, abdominal pain, n/v/d/c, calf pain, and lower extremity swelling. Patient was asymptomatic at time seen. Explained to patient need for Lexiscan stress test and possible cath if ischemia is detected. Review of Systems - Constitutional Constitutional: absent: As Per HPI, Anorexia, Chills, Daytime Sleepiness, Excessive Sweating, Fatigue, Fever, Frequent Falls, Headache, Increased Appetite , Lethargy, Malaise, Night Sweats, Snoring, Sleep Apnea, Weight Gain, Weight Loss, Weakness, Other - EENT Eyes: absent: Decreased Night Vision, Discharge Ears: absent: Decreased Hearing, Dizziness Nose/Mouth/Throat: absent: Mouth Lesions - Cardiovascular Cardiovascular: Chest Pain. absent: Leg Edema, Syncope - Respiratory Respiratory: Dyspnea. absent: Cough, Dyspnea on Exertion - Gastrointestinal Gastrointestinal: absent: Abdominal Pain, Heartburn - Musculoskeletal Musculoskeletal: absent: Arthralgias, Muscle Cramps - Neurological Neurological: absent: Focal Weakness Past Patient History - Infectious Disease Hx of Infectious Diseases: None - Past Medical History & Family History Past Medical History?: Yes - Past Social History Smoking Status: Never Smoked - CARDIAC Hx Hypercholesterolemia: Yes Hx Hypertension: Yes - PULMONARY Hx Respiratory Disorders: No - NEUROLOGICAL Hx Neurological Disorder: No - HEENT Hx HEENT Problems: No - RENAL Hx Chronic Kidney Disease: No - ENDOCRINE/METABOLIC Hx Endocrine Disorders: Yes Hx Diabetes Mellitus Type 2: Yes - HEMATOLOGICAL/ONCOLOGICAL Hx Blood Disorders: No - INTEGUMENTARY Hx Dermatological Problems: No - MUSCULOSKELETAL/RHEUMATOLOGICAL Hx Musculoskeletal Disorders: No Hx Falls: No - GASTROINTESTINAL Hx Gastrointestinal Disorders: No - GENITOURINARY/GYNECOLOGICAL Hx Genitourinary Disorders: No - PSYCHIATRIC Hx Substance Use: No - SURGICAL HISTORY Hx Surgeries: Yes Hx Cardiac Catheterization: Yes - ANESTHESIA Hx Anesthesia: Yes Hx Anesthesia Reactions: No Meds Allergies/Adverse Reactions: Allergies Allergy/AdvReac Type Severity Reaction Status Date / Time No Known Allergies Allergy Verified 06/24/17 10:48 - Medications Medications: Current Medications Amlodipine Besylate (Norvasc) 5 mg PO DAILY [facility] Aspirin (Ecotrin) 81 mg PO DAILY [facility] Clopidogrel Bisulfate (Plavix) 75 mg PO DAILY [facility] Dextrose (Dextrose 50% Inj) 0 ml IV STAT PRN; Protocol PRN Reason: Hypoglycemia Protocol Dextrose (Glutose 15) 0 gm PO ONCE PRN; Protocol PRN Reason: Hypoglycemia Protocol Glucagon (Glucagen Diagnostic Kit) 0 mg IM STAT PRN; Protocol PRN Reason: Hypoglycemia Protocol Heparin Sodium (Porcine) (Heparin) 5,000 units SC Q12 [facility] Last Admin: 06/24/17 21:29 Dose: 5,000 units Dextrose (Dextrose 5% In Water 1000 Ml) 1,000 mls @ 0 mls/hr IV .Q0M PRN; Protocol; Per Protocol PRN Reason: Hypoglycemia Protocol Insulin Human Regular (Novolin R) 0 unit SC ACHS [facility] PRN Reason: Protocol Last Admin: 06/24/17 21:34 Dose: Not Given Lisinopril (Zestril) 20 mg PO DAILY [facility] Metoprolol Succinate (Toprol Xl) 25 mg PO HS [facility] Last Admin: 06/24/17 21:29 Dose: 25 mg Pneumococcal Polyvalent Vaccine (Pneumovax 23 Vaccine) 0.5 ml IM .ONCE ONE Stop: 06/26/17 10:01 Physical Exam - Constitutional Appears: No Acute Distress - Head Exam Head Exam: NORMAL INSPECTION - Eye Exam Eye Exam: absent: Scleral icterus - ENT Exam ENT Exam: Mucous Membranes Moist - Respiratory Exam Respiratory Exam: Clear to Auscultation Bilateral - Cardiovascular Exam Cardiovascular Exam: REGULAR RHYTHM - GI/Abdominal Exam GI & Abdominal Exam: Soft. absent: Tenderness - Extremities Exam Extremities exam: Positive for: pedal edema. Negative for: calf tenderness - Neurological Exam Neurological exam: Alert, Oriented x3 Results - Vital Signs Recent Vital Signs: Last Vital Signs Temp 98.0 F 06/25/17 04:00 Pulse 88 06/25/17 04:00 Resp 18 06/25/17 04:00 BP 147/69 06/25/17 04:00 Pulse Ox 99 06/25/17 04:00 - Labs Result Diagrams: 06/24/17 11:49 06/24/17 11:49 Labs: Laboratory Results - last 24 hr 06/24/17 06/24/17 06/24/17 11:49 11:49 16:36 WBC 8.7 RBC 3.42 L Hgb 9.1 L Hct 26.7 L MCV 78.1 L MCH 26.7 L MCHC 34.2 RDW 15.9 H Plt Count 451 H MPV 7.6 Neut % (Auto) 73.3 Lymph % (Auto) 17.8 L [place] % (Auto) 8.2 Eos % (Auto) 0.5 Baso % (Auto) 0.2 Neut # (Auto) 6.4 Lymph # (Auto) 1.6 [place] # (Auto) 0.7 Eos # (Auto) 0.0 Baso # (Auto) 0.0 Sodium 137 Potassium 4.5 Chloride 100 Carbon Dioxide 23 Anion Gap 19 BUN 23 H Creatinine 1.0 Est GFR ( Amer) > 60 Est GFR (Non-Af Amer) > 60 POC Glucose (mg/dL) 446 H* Random Glucose 384 H Calcium 9.3 Total Bilirubin 0.9 AST 32 ALT 24 Alkaline Phosphatase 365 H D Total Creatine Kinase CK-MB (Mass) Troponin I < 0.0120 Total Protein 7.5 Albumin 3.5 Globulin 4.0 H Albumin/Globulin Ratio 0.9 L 06/24/17 06/24/17 06/24/17 16:38 18:49 21:31 WBC RBC Hgb Hct MCV MCH MCHC RDW Plt Count MPV Neut % (Auto) Lymph % (Auto) [place] % (Auto) Eos % (Auto) Baso % (Auto) Neut # (Auto) Lymph # (Auto) [place] # (Auto) Eos # (Auto) Baso # (Auto) Sodium Potassium Chloride Carbon Dioxide Anion Gap BUN Creatinine Est GFR ( Amer) Est GFR (Non-Af Amer) POC Glucose (mg/dL) 450 H* 263 H Random Glucose Calcium Total Bilirubin AST ALT Alkaline Phosphatase Total Creatine Kinase 74 CK-MB (Mass) 1.87 Troponin I < 0.0120 Total Protein Albumin Globulin Albumin/Globulin Ratio 06/25/17 00:15 WBC RBC Hgb Hct MCV MCH MCHC RDW Plt Count MPV Neut % (Auto) Lymph % (Auto) [place] % (Auto) Eos % (Auto) Baso % (Auto) Neut # (Auto) Lymph # (Auto) [place] # (Auto) Eos # (Auto) Baso # (Auto) Sodium Potassium Chloride Carbon Dioxide Anion Gap BUN Creatinine Est GFR ( Amer) Est GFR (Non-Af Amer) POC Glucose (mg/dL) Random Glucose Calcium Total Bilirubin AST ALT Alkaline Phosphatase Total Creatine Kinase 59 CK-MB (Mass) 1.24 Troponin I 0.0140 Total Protein Albumin Globulin Albumin/Globulin Ratio Assessment & Plan - Assessment and Plan (Free Text) Assessment: ACS CAD Plan: Agree w/ meds Lexiscan stress test ECHO [place] - Date & Time Date: 06/24/17 Time: 17:20
[2017-06-25] MEDS: (Novolin R) Insulin Human Regular 100 units/ml vial SC SCH ×4 (07:34→21:13)
[2017-06-25 07:59] VITALS: RESP 20
[2017-06-25 08:15] LABS: BASO % 0.6 % (0.0-2.0); EOS % 0.7 % (0.0-4.0); HEMOGLOBIN 10.1 g/dL (12.0-18.0); LYMPH # 1.7 K/uL (1.0-4.3); LYMPH % 24.1 % (20.0-40.0); MEAN CELL VOLUME 78.2 fL (80.0-94.0); MEAN CORPUSCULAR HEMOGLOBIN 26.5 pg (27.0-31.0); MEAN CORPUSCULAR HGB CONC 33.9 g/dL (33.0-37.0); MEAN PLATELET VOLUME 7.3 fL (7.2-11.7); MONO # 0.6 K/uL (0.0-0.8); MONO % 7.8 % (0.0-10.0); NEUT # 4.8 K/uL (1.8-7.0); NEUT % 66.8 % (50.0-75.0); RBC 3.82 Mil/uL (4.40-5.90); RED CELL DISTRIBUTION WIDTH 15.8 % (11.5-14.5); WHITE BLOOD COUNT 7.2 K/uL (4.8-10.8)
[2017-06-25 08:34] LABS: IRON 26 ug/dL (49-181)
[2017-06-25 08:37] LABS: ALB/GLOB RATIO 0.8 (1.0-2.1); ALBUMIN 3.4 g/dL (3.5-5.0); ALT/SGPT 29 U/L (21-72); AST/SGOT 30 U/L (17-59); BLOOD UREA NITROGEN 15 mg/dL (9-20); GFR AFRICAN-AMERICAN > 60; GFR NON-AFRICAN AMERICAN > 60; HDL CHOLESTEROL 27 mg/dL (30-70)
[2017-06-25 08:49] LABS: LDL CHOLESTEROL < 30 mg/dL (0-129)
[2017-06-25 08:55] LABS: % IRON SATURATION 12 (20-55); TOTAL IRON BINDING CAPACITY 223 ug/dL (250-450)
--- NOTE | 2017-06-25 10:12 | CP.PCM.PN ---
<Flora Andino - Last Filed: 06/25/17 17:52> Subjective - Date & Time of Evaluation Date of Evaluation: 06/25/17 Time of Evaluation: 07:30 - Subjective Subjective: Patient seen and examined at bedside with Kiley ice crusher (Chelsea ice crusher not available but patient can understand and speak both). Patient is resting comfortably in bed with no new complaints at this time. Patient says he is having no more chest pain and feels much better this morning. Patient is aware that he will be going for stress test this morning and has no questions regarding this. Patient denies fever, chills, dizziness, headache, chest pain, SOB, cough, palpitations, abdominal pain, n/v/d/c, and lower extremity pain/ swelling. Objective - Vital Signs/Intake and Output Vital Signs (last 24 hours): Temp Pulse Resp BP Pulse Ox 98.3 F 89 20 111/67 99 06/25/17 07:00 06/25/17 07:00 06/25/17 07:00 06/25/17 07:00 06/25/17 07:00 Intake and Output: 06/25/17 06/25/17 06:59 18:59 Intake Total 10 Balance 10 - Medications Medications: Current Medications Amlodipine Besylate (Norvasc) 5 mg PO DAILY [facility] Aspirin (Ecotrin) 81 mg PO DAILY [facility] Clopidogrel Bisulfate (Plavix) 75 mg PO DAILY [facility] Dextrose (Dextrose 50% Inj) 0 ml IV STAT PRN; Protocol PRN Reason: Hypoglycemia Protocol Dextrose (Glutose 15) 0 gm PO ONCE PRN; Protocol PRN Reason: Hypoglycemia Protocol Glucagon (Glucagen Diagnostic Kit) 0 mg IM STAT PRN; Protocol PRN Reason: Hypoglycemia Protocol Heparin Sodium (Porcine) (Heparin) 5,000 units SC Q12 [facility] Last Admin: 06/24/17 21:29 Dose: 5,000 units Dextrose (Dextrose 5% In Water 1000 Ml) 1,000 mls @ 0 mls/hr IV .Q0M PRN; Protocol; Per Protocol PRN Reason: Hypoglycemia Protocol Insulin Human Regular (Novolin R) 0 unit SC ACHS [facility] PRN Reason: Protocol Last Admin: 06/25/17 07:34 Dose: Not Given Lisinopril (Zestril) 20 mg PO DAILY [facility] Metoprolol Succinate (Toprol Xl) 25 mg PO HS [facility] Last Admin: 06/24/17 21:29 Dose: 25 mg Pneumococcal Polyvalent Vaccine (Pneumovax 23 Vaccine) 0.5 ml IM .ONCE ONE Stop: 06/26/17 10:01 - Labs Labs: 06/25/17 08:06 06/25/17 08:06 - Constitutional Appears: Non-toxic, No Acute Distress - Head Exam Head Exam: ATRAUMATIC, NORMAL INSPECTION, NORMOCEPHALIC - Eye Exam Eye Exam: EOMI, Normal appearance, PERRL - ENT Exam ENT Exam: Mucous Membranes Moist Additional comments: poor dentition due to years of chewing tobacco use - Respiratory Exam Respiratory Exam: Clear to Ausculation Bilateral, NORMAL BREATHING PATTERN. absent: Accessory Muscle Use, Rales, Rhonchi, Wheezes, Respiratory Distress - Cardiovascular Exam Cardiovascular Exam: RRR, +S1, +S2. absent: Bradycardia, Tachycardia, JVD, Murmur - GI/Abdominal Exam GI & Abdominal Exam: Soft, Normal Bowel Sounds. absent: Distended, Tenderness - Extremities Exam Extremities Exam: Normal Inspection. absent: Calf Tenderness, Pedal Edema - Neurological Exam Neurological Exam: Alert, Awake, Oriented x3 - Psychiatric Exam Psychiatric exam: Normal Affect, Normal Mood - Skin Skin Exam: Dry, Intact, Normal Color, Warm Assessment and Plan - Assessment and Plan (Free Text) Plan: Atypical chest pain with history of CAD s/p stenting x2 (at [facility] - May and June of [address] Purcell) * Observe on telemetry * Cardiology (Dr. Gómez) consulted, help appreciated * Lexiscan 06/25 * [place] negative x3 * Echo: Atrial septum is aneurysmal and suspiscious for PFO, otherwise normal study with EF 65-70% * TSH/Free T4: 0.90/1.07 * Lipid panel: Trig 75, Chol 79, LDL <30, HDL 27 * HbA1c 10.4 Meds: * ASA 81 mg daily * Toprol 25 mg HS * Lisinopril 20 mg daily * Crestor 40 mg HS Anemia * likely secondary to iron deficiency * Iron 26 * Ferritin 628 * % Saturation 12 * TIBC 223 History of DM II * Hold metformin and glipizide * RISS high dose * Accuchecks * Hypoglycemic protocol * HbA1c: 10.4 * lipid panel: Trig 75, Chol 79, LDL <30, HDL 27 History of HLD * Lipid panel: Trig 75, Chol 79, LDL <30, HDL 27 * Crestor as above History of HTN * Toprol 25 mg HS * Lisinopril 20 mg daily * Amlodipine 5 mg daily at 1 pm Prophylaxis * GI prophylaxis not indicated * DVT risk score: 2 - Heparin and SCDs When discharged patient will need Metformin and Glipizide increased and statin reduced. He also needs GI follow up for and outpatient colonoscopy. <Boris Finch - Last Filed: 06/25/17 20:21> Objective - Vital Signs/Intake and Output Vital Signs (last 24 hours): Temp Pulse Resp BP Pulse Ox 98.5 F 120 H 20 146/72 99 06/25/17 15:00 06/25/17 18:12 06/25/17 15:00 06/25/17 15:00 06/25/17 15:00 Intake and Output: 06/25/17 06/26/17 18:59 06:59 Intake Total 240 Balance 240 - Medications Medications: Current Medications Amlodipine Besylate (Norvasc) 5 mg PO DAILY [facility] Last Admin: 06/25/17 13:20 Dose: 5 mg Aspirin (Ecotrin) 81 mg PO DAILY [facility] Last Admin: 06/25/17 13:20 Dose: 81 mg Clopidogrel Bisulfate (Plavix) 75 mg PO DAILY [facility] Last Admin: 06/25/17 13:20 Dose: 75 mg Dextrose (Dextrose 50% Inj) 0 ml IV STAT PRN; Protocol PRN Reason: Hypoglycemia Protocol Dextrose (Glutose 15) 0 gm PO ONCE PRN; Protocol PRN Reason: Hypoglycemia Protocol Ferrous Sulfate (Feosol) 325 mg PO DAILY [facility] Glucagon (Glucagen Diagnostic Kit) 0 mg IM STAT PRN; Protocol PRN Reason: Hypoglycemia Protocol Heparin Sodium (Porcine) (Heparin) 5,000 units SC Q12 [facility] Last Admin: 06/25/17 10:00 Dose: Not Given Dextrose (Dextrose 5% In Water 1000 Ml) 1,000 mls @ 0 mls/hr IV .Q0M PRN; Protocol; Per Protocol PRN Reason: Hypoglycemia Protocol Insulin Human Regular (Novolin R) 0 unit SC ACHS [facility] PRN Reason: Protocol Last Admin: 06/25/17 17:19 Dose: 6 unit Lisinopril (Zestril) 20 mg PO DAILY [facility] Last Admin: 06/25/17 13:25 Dose: 20 mg Metoprolol Succinate (Toprol Xl) 25 mg PO HS [facility] Last Admin: 06/24/17 21:29 Dose: 25 mg Pneumococcal Polyvalent Vaccine (Pneumovax 23 Vaccine) 0.5 ml IM .ONCE ONE Stop: 06/26/17 10:01 - Labs Labs: 06/25/17 08:06 06/25/17 08:06 Attending/Attestation - Attestation I have personally seen and examined this patient.: Yes I have fully participated in the care of the patient.: Yes I have reviewed all pertinent clinical information, including history, physical exam and plan: Yes Notes (Text): 06/25/17 20:20 Patient was seen and examined shortly after resident Dr. Rafael Andino Exam, assessment and plan were gone over with the resident. Awaiting for results of Myocardial Perfusion Scan. Spoke with Business Development Sales Executive Dr. Gómez who stated that if positive then [facility] Team will have to arrange for Cardiac Cath with Dr. Pascual. Boris Finch D.O.
--- NOTE | 2017-06-25 12:34 | CARD ---
APPROVED REPORT EXAM: Two-dimensional and M-mode echocardiogram with Doppler and color Doppler. Other Information Quality : GoodRhythm : INDICATION Dizziness and Vertigo Chest Pain HX OF CARDIAC STENT RISK FACTORS Hypertension Hyperlipidemia Diabetes 2D DIMENSIONS IVSd1.3 (0.7-1.1cm)LVDd3.9 (3.9-5.9cm) PWd1.2 (0.7-1.1cm)LVDs3.1 (2.5-4.0cm) FS (%) 19.6 %LVEF (%)62.0 (>50%) M-Mode DIMENSIONS RVDd2.19 (2.1-3.2cm)Left Atrium (MM)3.76 (2.5-4.0cm) IVSd1.15 (0.7-1.1cm)Aortic Root3.07 (2.2-3.7cm) LVDd4.92 (4.0-5.6cm)Aortic Cusp Exc.2.02 (1.5-2.0cm) PWd1.12 (0.7-1.1cm)FS (%) 51 % LVDs2.43 (2.0-3.8cm)LVEF (%)60 (>50%) Mitral Valve MV E Zdmqyrox06.9cm/sMV A Yxesqzkc67.4cm/sE/A ratio0.7 TDI E/Lateral E'0.0E/Medial E'0.0 Tricuspid Valve TR Peak Yumldlsz717el/sTR Peak Gr.59qvSgNZJP00oqQk <Conclusion> normal size la,lv & ra,rv. normal lv wall otion,thickness,systolic & diastolic function with lvef of 65-70%. normal aortic mitral,tv & pv.mild tr,pi with upper normal pulmonary systolic pressures of 34 mm of hg. normal size aortic root & ivc. no pericardial effusion. atrial septum is aneurysmal & suspicious for pfo.
--- NOTE | 2017-06-25 14:52 | CARD ---
APPROVED REPORT EKG Measurement Heart [id number] <Conclusion> Normal sinus rhythm Normal ECG
--- NOTE | 2017-06-25 14:52 | CARD ---
APPROVED REPORT EKG Measurement Heart [id number] [place] [id number] [id number] <Conclusion> Normal sinus rhythm Nonspecific intraventricular block Abnormal ECG
[2017-06-25] MEDS: Metoprolol Succinate 25 mg XL Tab PO SCH (21:28)
[2017-06-26 08:14] VITALS: BP 134/64; PULSE 73; TEMP 98.3
[2017-06-26 08:24] LABS: BASO % 0.5 % (0.0-2.0); EOS # 0.1 K/uL (0.0-0.7); HEMOGLOBIN 9.9 g/dL (12.0-18.0); LYMPH # 1.8 K/uL (1.0-4.3); LYMPH % 25.6 % (20.0-40.0); MEAN CELL VOLUME 78.2 fL (80.0-94.0); MEAN CORPUSCULAR HEMOGLOBIN 26.5 pg (27.0-31.0); MEAN CORPUSCULAR HGB CONC 33.9 g/dL (33.0-37.0); MEAN PLATELET VOLUME 7.4 fL (7.2-11.7); MONO # 0.6 K/uL (0.0-0.8); MONO % 8.8 % (0.0-10.0); NEUT # 4.5 K/uL (1.8-7.0); NEUT % 64.1 % (50.0-75.0); RBC 3.74 Mil/uL (4.40-5.90); RED CELL DISTRIBUTION WIDTH 15.8 % (11.5-14.5)
[2017-06-26] MEDS: (Novolin R) Insulin Human Regular 100 units/ml vial SC SCH ×2 (08:25→12:00)
[2017-06-26 08:31] LABS: ALB/GLOB RATIO 0.8 (1.0-2.1); ALBUMIN 3.4 g/dL (3.5-5.0); ALT/SGPT 25 U/L (21-72); AST/SGOT 24 U/L (17-59); BLOOD UREA NITROGEN 16 mg/dL (9-20); CALCIUM 9.2 mg/dl (8.6-10.4); GFR AFRICAN-AMERICAN > 60; GFR NON-AFRICAN AMERICAN > 60
[2017-06-26] MEDS ORDERED: Pneumococcal 23-Valent Vaccine IM ONE (10:00)
--- NOTE | 2017-06-26 17:16 | CP.PCM.DIS ---
<Flora Andino - Last Filed: 06/26/17 17:10> Provider - Provider Date of Admission: 06/24/17 13:20 Attending physician: Boris Finch MD Primary care physician: Dr. Estelita Finch Consults: Dr. Gómez Time Spent in preparation of Discharge (in minutes): 35 Diagnosis - Discharge Diagnosis (1) Chest pain Status: Acute Hospital Course - Lab Results Lab Results: Most Recent Lab Values WBC 7.0 K/uL (4.8-10.8) 06/26/17 08:12 RBC 3.74 Mil/uL (4.40-5.90) L 06/26/17 08:12 Hgb 9.9 g/dL (12.0-18.0) L 06/26/17 08:12 Hct 29.3 % (35.0-51.0) L 06/26/17 08:12 MCV 78.2 fL (80.0-94.0) L 06/26/17 08:12 MCH 26.5 pg (27.0-31.0) L 06/26/17 08:12 MCHC 33.9 g/dL (33.0-37.0) 06/26/17 08:12 RDW 15.8 % (11.5-14.5) H 06/26/17 08:12 Plt Count 420 K/uL (130-400) H 06/26/17 08:12 MPV 7.4 fL (7.2-11.7) 06/26/17 08:12 Neut % (Auto) 64.1 % (50.0-75.0) 06/26/17 08:12 Lymph % (Auto) 25.6 % (20.0-40.0) 06/26/17 08:12 [place] % (Auto) 8.8 % (0.0-10.0) 06/26/17 08:12 Eos % (Auto) 1.0 % (0.0-4.0) 06/26/17 08:12 Baso % (Auto) 0.5 % (0.0-2.0) 06/26/17 08:12 Neut # (Auto) 4.5 K/uL (1.8-7.0) 06/26/17 08:12 Lymph # (Auto) 1.8 K/uL (1.0-4.3) 06/26/17 08:12 [place] # (Auto) 0.6 K/uL (0.0-0.8) 06/26/17 08:12 Eos # (Auto) 0.1 K/uL (0.0-0.7) 06/26/17 08:12 Baso # (Auto) 0.0 K/uL (0.0-0.2) 06/26/17 08:12 Sodium 136 mmol/L (132-148) 06/26/17 08:12 Potassium 4.8 mmol/L (3.6-5.2) 06/26/17 08:12 Chloride 99 mmol/L (98-107) 06/26/17 08:12 Carbon Dioxide 27 mmol/L (22-30) 06/26/17 08:12 Anion Gap 15 (10-20) 06/26/17 08:12 BUN 16 mg/dL (9-20) 06/26/17 08:12 Creatinine 0.8 mg/dL (0.8-1.5) 06/26/17 08:12 Est GFR ( Amer) > 60 06/26/17 08:12 Est GFR (Non-Af Amer) > 60 06/26/17 08:12 POC Glucose (mg/dL) 298 mg/dL (65-110) H 06/26/17 11:16 Random Glucose 255 mg/dL (75-110) H 06/26/17 08:12 Hemoglobin A1c 10.4 % (4.2-6.5) H 06/25/17 08:06 Calcium 9.2 mg/dl (8.6-10.4) 06/26/17 08:12 Phosphorus 3.1 mg/dL (2.5-4.5) 06/26/17 08:12 Magnesium 2.0 mg/dL (1.6-2.3) 06/26/17 08:12 Iron 26 ug/dL (49-181) L 06/25/17 08:06 TIBC 223 ug/dL (250-450) L 06/25/17 08:06 % Saturation 12 (20-55) L 06/25/17 08:06 Ferritin 628.0 ng/mL 06/25/17 08:06 Total Bilirubin 0.8 mg/dL (0.2-1.3) 06/26/17 08:12 AST 24 U/L (17-59) 06/26/17 08:12 ALT 25 U/L (21-72) 06/26/17 08:12 Alkaline Phosphatase 348 U/L (38-126) H 06/26/17 08:12 Total Creatine Kinase 59 U/L (55-170) 06/25/17 00:15 CK-MB (Mass) 1.24 ng/mL (0.0-3.38) 06/25/17 00:15 Troponin I 0.0140 ng/mL (0.00-0.120) 06/25/17 00:15 Total Protein 7.6 g/dL (6.3-8.3) 06/26/17 08:12 Albumin 3.4 g/dL (3.5-5.0) L 06/26/17 08:12 Globulin 4.2 gm/dL (2.2-3.9) H 06/26/17 08:12 Albumin/Globulin Ratio 0.8 (1.0-2.1) L 06/26/17 08:12 Triglycerides 75 mg/dL (0-149) 06/25/17 08:06 Cholesterol 79 mg/dL (0-199) 06/25/17 08:06 LDL Cholesterol Direct < 30 mg/dL (0-129) 06/25/17 08:06 HDL Cholesterol 27 mg/dL (30-70) L 06/25/17 08:06 Free T4 1.07 ng/dL (0.78-2.19) 06/25/17 08:06 TSH 3rd Generation 0.90 mIU/L (0.46-4.68) 06/25/17 08:06 - Hospital Course Hospital Course: Upon admission: Patient is a 61 year old male with a past medical history of HTN, HLD, DM II, and CAD s/p 2 stents (at [facility] in May & June 2016) presents to the ED complaining of chest pain. Patient says he has had this pain for a year ever since the stent was placed, however it comes and goes. Patient says it feels like a searing pain and points just to the left of the apex of his heart when describing where the pain is. He rates it as a 4/10 and says it lasts anywhere between 2-5 minutes. Patient says he woke up this morning and showered around 5 AM and felt it while he was showering but it went away so he went back to sleep afterwards. When he woke up later he had the pain again around 9-10 AM, but this time he felt weak when he had it. He says nothing made the pain better or worse until he got to the ED where he got nitro and the pain went away. Patient denies fever, chills, lightheadedness, dizziness, SOB, parasthesias, cough, abdominal pain, n/v/d/c, calf pain, and lower extremity swelling. Hospital course: Patient was admitted to rule out ACS. Troponins were negative x3. Patient was started on ASA 81 mg daily, Toprol 25 mg HS, Lisinopril 20 mg daily, and Crestor [address] Gómez was consulted who recommended Lexiscan stress test which came back normal. Echo: Atrial septum is aneurysmal and suspiscious for PFO, otherwise normal study with EF 65-70%. Dr. Pascual was called, covering for Dr. Gómez, and he said given the patient's age and lack of stroke symptoms, he did not need a echo bubble study. TSH/Free T4: 0.90/1.07. Lipid panel: Trig 75, Chol 79, LDL <30, HDL 27. HbA1c 10.4. Statin was reduced and diabetic medications were increased as shown below. Patient was found to have iron deficiency anemia and was started on ferroud sulfate 325 mg. Upon discharge: Patient stable for discharge per Dr. Finch and Dr. Pascual. Patient was given the following instructions: Please take ONLY the following medications as prescribed to you: Norvasc 5 mg by mouth once daily at breakfast Aspirin 81 mg by mouth once daily at breakfast Plavix 75 mg by mouth once daily at breakfast Ferrous sulfate 325 mg by mouth once daily at lunch Zestril 20 mg by mouth once daily at lunch Metoprolol XL 25 mg by mouth once daily at dinner Metformin 1000 mg by mouth twice daily at breakfast and dinner Glipizide 10 mg by mouth once daily at lunch Atorvastatin 40 mg by mouth once daily at dinner Please follow up with your primary care doctor, Dr. Estelita Finch, to arrange for outpatient colonoscopy and continue routine care. Please note that this is a summary of events. For more details, please see complete medical record. Discharge Exam - Head Exam Head Exam: ATRAUMATIC, NORMAL INSPECTION, NORMOCEPHALIC - Eye Exam Eye Exam: EOMI, Normal appearance, PERRL Pupil Exam: NORMAL ACCOMODATION, PERRL - ENT Exam ENT Exam: Mucous Membranes Moist - Respiratory Exam Respiratory Exam: Clear to PA & Lateral, NORMAL BREATHING PATTERN, UNREMARKABLE - Cardiovascular Exam Cardiovascular Exam: RRR, +S1, +S2 - GI/Abdominal Exam GI & Abdominal Exam: Normal Bowel Sounds, Unremarkable - Extremities Exam Extremities exam: normal inspection - Neurological Exam Neurological exam: Alert, Oriented x3 - Psychiatric Exam Psychiatric exam: Normal Affect, Normal Mood - Skin Skin Exam: Dry, Intact, Normal Color, Warm Discharge Plan - Discharge Medications Prescriptions: amLODIPine [Norvasc] 5 mg PO DAILY #30 tab Aspirin [Ecotrin] 81 mg PO DAILY #30 tabec Atorvastatin [Lipitor] 40 mg PO DAILY #30 tab Clopidogrel [Plavix] 75 mg PO DAILY #30 tab Ferrous Sulfate [Feosol] 325 mg PO DAILY #30 tab GlipiZIDE [Glucotrol] 10 mg PO DAILY #30 tab Lisinopril [Zestril] 20 mg PO DAILY #30 tab MetFORMIN [glucoPHAGE] 1,000 mg PO BID #60 tab Metoprolol Succinate [Toprol XL] 25 mg PO DAILY #30 tab - Follow Up Plan Condition: GOOD Disposition: HOME/ ROUTINE Instructions: High Cholesterol, Heart Healthy Diet, Carbohydrate Counting Diet , Diabetes Diet , Chest Pain (DC), Coronary Heart Disease (DC), Normocytic Normochromic Anemia (DC) Additional Instructions: Please take ONLY the following medications as prescribed to you: Norvasc 5 mg by mouth once daily at breakfast Aspirin 81 mg by mouth once daily at breakfast Plavix 75 mg by mouth once daily at breakfast Ferrous sulfate 325 mg by mouth once daily at lunch Zestril 20 mg by mouth once daily at lunch Metoprolol XL 25 mg by mouth once daily at dinner Metformin 1000 mg by mouth twice daily at breakfast and dinner Glipizide 10 mg by mouth once daily at lunch Atorvastatin 40 mg by mouth once daily at dinner Please follow up with your primary care doctor, Dr. Estelita Finch, to arrange for outpatient colonoscopy and continue routine care. Referrals: Di Finch MD [Staff Provider] - <Boris Finch - Last Filed: 06/26/17 19:18> Provider - Provider Date of Admission: 06/24/17 13:20 Attending physician: Boris Finch MD Time Spent in preparation of Discharge (in minutes): 40 Hospital Course - Lab Results Lab Results: Most Recent Lab Values WBC 7.0 K/uL (4.8-10.8) 06/26/17 08:12 RBC 3.74 Mil/uL (4.40-5.90) L 06/26/17 08:12 Hgb 9.9 g/dL (12.0-18.0) L 06/26/17 08:12 Hct 29.3 % (35.0-51.0) L 06/26/17 08:12 MCV 78.2 fL (80.0-94.0) L 06/26/17 08:12 MCH 26.5 pg (27.0-31.0) L 06/26/17 08:12 MCHC 33.9 g/dL (33.0-37.0) 06/26/17 08:12 RDW 15.8 % (11.5-14.5) H 06/26/17 08:12 Plt Count 420 K/uL (130-400) H 06/26/17 08:12 MPV 7.4 fL (7.2-11.7) 06/26/17 08:12 Neut % (Auto) 64.1 % (50.0-75.0) 06/26/17 08:12 Lymph % (Auto) 25.6 % (20.0-40.0) 06/26/17 08:12 [place] % (Auto) 8.8 % (0.0-10.0) 06/26/17 08:12 Eos % (Auto) 1.0 % (0.0-4.0) 06/26/17 08:12 Baso % (Auto) 0.5 % (0.0-2.0) 06/26/17 08:12 Neut # (Auto) 4.5 K/uL (1.8-7.0) 06/26/17 08:12 Lymph # (Auto) 1.8 K/uL (1.0-4.3) 06/26/17 08:12 [place] # (Auto) 0.6 K/uL (0.0-0.8) 06/26/17 08:12 Eos # (Auto) 0.1 K/uL (0.0-0.7) 06/26/17 08:12 Baso # (Auto) 0.0 K/uL (0.0-0.2) 06/26/17 08:12 Sodium 136 mmol/L (132-148) 06/26/17 08:12 Potassium 4.8 mmol/L (3.6-5.2) 06/26/17 08:12 Chloride 99 mmol/L (98-107) 06/26/17 08:12 Carbon Dioxide 27 mmol/L (22-30) 06/26/17 08:12 Anion Gap 15 (10-20) 06/26/17 08:12 BUN 16 mg/dL (9-20) 06/26/17 08:12 Creatinine 0.8 mg/dL (0.8-1.5) 06/26/17 08:12 Est GFR ( Amer) > 60 06/26/17 08:12 Est GFR (Non-Af Amer) > 60 06/26/17 08:12 POC Glucose (mg/dL) 298 mg/dL (65-110) H 06/26/17 11:16 Random Glucose 255 mg/dL (75-110) H 06/26/17 08:12 Hemoglobin A1c 10.4 % (4.2-6.5) H 06/25/17 08:06 Calcium 9.2 mg/dl (8.6-10.4) 06/26/17 08:12 Phosphorus 3.1 mg/dL (2.5-4.5) 06/26/17 08:12 Magnesium 2.0 mg/dL (1.6-2.3) 06/26/17 08:12 Iron 26 ug/dL (49-181) L 06/25/17 08:06 TIBC 223 ug/dL (250-450) L 06/25/17 08:06 % Saturation 12 (20-55) L 06/25/17 08:06 Ferritin 628.0 ng/mL 06/25/17 08:06 Total Bilirubin 0.8 mg/dL (0.2-1.3) 06/26/17 08:12 AST 24 U/L (17-59) 06/26/17 08:12 ALT 25 U/L (21-72) 06/26/17 08:12 Alkaline Phosphatase 348 U/L (38-126) H 06/26/17 08:12 Total Creatine Kinase 59 U/L (55-170) 06/25/17 00:15 CK-MB (Mass) 1.24 ng/mL (0.0-3.38) 06/25/17 00:15 Troponin I 0.0140 ng/mL (0.00-0.120) 06/25/17 00:15 Total Protein 7.6 g/dL (6.3-8.3) 06/26/17 08:12 Albumin 3.4 g/dL (3.5-5.0) L 06/26/17 08:12 Globulin 4.2 gm/dL (2.2-3.9) H 06/26/17 08:12 Albumin/Globulin Ratio 0.8 (1.0-2.1) L 06/26/17 08:12 Triglycerides 75 mg/dL (0-149) 06/25/17 08:06 Cholesterol 79 mg/dL (0-199) 06/25/17 08:06 LDL Cholesterol Direct < 30 mg/dL (0-129) 06/25/17 08:06 HDL Cholesterol 27 mg/dL (30-70) L 06/25/17 08:06 Free T4 1.07 ng/dL (0.78-2.19) 06/25/17 08:06 TSH 3rd Generation 0.90 mIU/L (0.46-4.68) 06/25/17 08:06 Attending/Attestation - Attestation I have personally seen and examined this patient.: Yes I have fully participated in the care of the patient.: Yes I have reviewed all pertinent clinical information, including history, physical exam and plan: Yes Notes (Text): 06/26/17 19:17 Patient was seen and examined shortly after the resident Dr. Rafael Andino Exam, assessment and plan, and discharge instructions were gone over the resident. Boris Finch D.O.
--- NOTE | 2017-06-29 07:22 | CARD ---
APPROVED REPORT Protocol: LEXISCAN Test Type: LEXISCAN STRESS Test Indications: CP Target HR: 158 bpm Resting ECG: EKG Resting Heart Rate: 81 bpm Resting Blood Pressure: 128/80mmHg submaximum (85%): 134 bpm TEST SUMMARY [id number]:01..1.080/.0. PREINFSNHYPERV.00:410.00.01.591599/80.0. INFUSIONDOSE 100:300.00.01.115533/80.0. LARIYZBEC21:050.00..8700414/80.0. PROCEDURE Pharmacologic stress testing was performed using 0.4mg per 5ml of regadenoson given intravenously over 7-10 seconds. Reversal agent aminophyline 100 mg, given intravenously for Headache. POST EXERCISE Reason for Termination: Protocol Completed Target HR: No Max HR: 85 bpm 63% of Maximum Predicted HR: 158 bpm Exercise duration: 00:30 min:sec, 0 Stage Exercise capacity: 1.0METs Max Blood Pressure: 128/80mmHg Blood Pressure response to exercise: normal resting BP - appropriate response Heart Rate response to exercise: appropriate Chest Pain: No, none Angina index: 0 Arrhythmia: No, none ST Change: No, none Deviation: 0 mm INTERPRETATION Stress EKG Conclusion: NEGATIVE LEXISCAN STRESS TEST NORMAL BP RESPONSE TO EXERCISE NUCLEAR STUDIES TO BE READ SEPARATELY EXAM: Myocardial Perfusion STRESS/REST Imaging Protocol The imaging protocol used to acquire images was Rest Tc-99m/stress Tc-99m 1 day Stress Spect myocardial perfusion imaging was performed in supine position 54 minutes following the injection of 12.4 mCi of Tc-99 Myoview. Gated Rest Spect was performed 45 minutes after intravenous 32.5 mci Tc-99 Myoview injection. The images were gated to evaluate regional wall motion and calculate ventricular ejection fraction.Images were reconstructed using backfilter projection method in short horizontal and verticle long axis. Spect slices were generated. RESTING DATA XLY475.48rlGI0.50L/min ESV54.00mlMyocardial Zfny180.00g Av. Heart Rate78.00bpm EF51.00% STRESS DATA YUC899.94gbVQ3.50L/min ESV56.00mlMyocardial Ebtt482.00g EF52.00% Regional WT score at stress:2.00 Regional WM score at stress:0.00 Summed WT score at stress:17.00 Av. Heart Rate73.00bpmSummed WM score at stress:16.00 LV Perf. Quant 17 Seg. SSS17.00 17 Seg. SRS10.00 17 Seg. SDS7.00 Stress Defect Extent (% LAD)48.80Rest Defect Extent (% LAD)28.80Rev. Defect Extent (% LAD)32.50 Stress Defect Extent (% LCX)40.00Rest Defect Extent (% LCX)28.80Rev. Defect Extent (% LCX)3.80 Stress Defect Extent (% RCA)3.30Rest Defect Extent (% RCA)0.00Rev. Defect Extent (% RCA)3.30 Stress Defect Extent (% ALY)35.90Rest Defect Extent (% ALY)22.60Rev. Defect Extent (% ALY)17.00 IMPRESSION Abnormal Myocardial Perfusion exercise stress study Left Ventricle LV Size/Shape: The left ventricle is normal size. LV Function:Left ventricle systolic function is normal. The Ejection Fraction is 50-55%. Regional Wall Motion:There is normal left ventricular wall motion. Metabolism/Perfusion Defects: There is scan evidence of reversible ischemia in the anterior wall. Conclusion 1. There is scan evidence of reversible ischemia in the anterior wall. 2. Left ventricle systolic function is normal. 3. The Ejection Fraction is 50-55%.
--- NOTE | 2017-06-29 11:42 | CP.PCM.PCO ---
Physician Communication Note - Physician Communication Note Physician Communication Note: See above
--- NOTE | 2017-07-05 22:12 | CARD ---
APPROVED REPORT EKG Measurement Heart [id number] [place] 162P58 [id number] <Conclusion> Normal sinus rhythm Normal ECG
== END 2017-06-26 16:32 | disposition home or self-care (01) ==
LOC: C.ER 10:41 → C.6T 13:20
PROVIDERS: ADMIT Family Medicine; ATTEND Family Medicine
DX: R07.9 Chest pain, unspecified (principal); Z95.5 Presence of coronary angioplasty implant and graft; I10 Essential (primary) hypertension; E78.00 Pure hypercholesterolemia, unspecified; I25.10 Atherosclerotic heart disease of native coronary artery without angina pectoris; E11.9 Type 2 diabetes mellitus without complications; Z79.82 Long term (current) use of aspirin; Z79.84 Long term (current) use of oral hypoglycemic drugs; Z79.02 Long term (current) use of antithrombotics/antiplatelets; Z83.3 Family history of diabetes mellitus; Z82.49 Family history of ischemic heart disease and other diseases of the circulatory system; F17.220 Nicotine dependence, chewing tobacco, uncomplicated; D50.9 Iron deficiency anemia, unspecified; Z23 Encounter for immunization
CPT/HCPCS: 36415; 71045; 78452; 80053; 80061; 82728; 82948; 83036; 83540; 83550; 83735; 84100; 84439; 84443; 84484; 85025; 90471; 90732; 93005; 93017; 93306; 99283; A9502; G0378; J1644; J2785